=== PATIENT | female | born 1975 | race Two or more races ===

== ENCOUNTER 2019-06-07 17:15 | Inpatient (IN) | payer SELFPAY ==
[~2019-06-07] VITALS: Ht 160 cm; Wt 134.9 kg
[2019-06-07] MEDS ORDERED: cloNIDine HCL 0.1 MG TAB ONE (17:48)
[2019-06-07] MEDS ORDERED: cloNIDine HCL 0.1 MG TAB PO ONE (18:00)
[2019-06-07 19:04] LABS: Basophils # (auto) 0.1 uL; Basophils % (auto) 0.6 % (0.0-2.0); Eosinophils # (auto) 0.2 uL; Eosinophils % (auto) 1.5 % (0.0-7.0); Hematocrit 35.7 % (36.0-46.0); Hemoglobin 11.8 g/dL (12.2-16.2); Lymphocytes # (auto) 1.6 uL; Lymphocytes % (auto) 15.8 % (10.0-50.0); Mean Corpuscular Hemoglobin 25.2 pg (28.0-32.0); Mean Corpuscular Volume 76.3 fL (80.0-100.0); Monocytes # (auto) 0.7 uL; Monocytes % (auto) 6.9 % (0.0-12.0); Neutrophils # (auto) 7.7 uL; Neutrophils % (auto) 75.2 % (37.0-80.0); Platelet Count (auto) 315 10^3/uL (140-450); Red Blood Cells 4.68 10^6/uL (4.0-5.20); Red Cell Distribution Width 16.9 % (11.8-14.3); White Blood Cell 10.3 10^3/uL (4.4-10.8)
[2019-06-07 19:29] LABS: Albumin 3.3 g/dL (3.4-5.0); Calcium 8.7 mg/dL (8.5-10.1); Potassium 3.3 mmol/L (3.5-5.1)
[2019-06-07 19:34] LABS: BUN/Creatinine Ratio 23.1; Bilirubin, Total 0.3 mg/dL (0.2-1.0); Total Protein 7.2 g/dL (6.4-8.2)
[2019-06-07] MEDS ORDERED: HYDROcodone-ACET 10/325MG TAB PO ONE (23:45)
[2019-06-08] MEDS ORDERED: TEMAZEPAM 15 MG CAP PO PRN (05:15)
[2019-06-08] MEDS ORDERED: ONDANSETRON HCL 4 MG/2 ML VIAL IV PRN (05:15)
[2019-06-08] MEDS ORDERED: POTASSIUM CHL 20 Meq TABLET PO ONE (05:15)
[2019-06-08 06:04] LABS: Cholesterol 188 mg/dL (< 200); HDL Cholesterol 50 mg/dL (40-59); LDL Cholesterol 111 mg/dL (< 100); Triglycerides 165 mg/dL (< 150)
[2019-06-08] MEDS ORDERED: HYDROcodone-ACET 5/325MG TAB PO ONE (06:30)
[2019-06-08 06:53] LABS: Uric Acid 4.9 mg/dL (2.6-6.0)
[2019-06-08 07:05] LABS: CRP High Sensitivity 1.16 mg/dL (< 0.3)
--- NOTE | 2019-06-08 07:30 | NUR ---
Opening Shift Note Received report on the patient. Awake and lying in bed. Patient shows no signs of distress at this time. Discussed plan of care with the patient. Bed in lowest position, side rails up x2, and the call light is within reach. Will continue to monitor.
[2019-06-08] MEDS: cloNIDine HCL 0.1 MG TAB PO PRN (07:34)
[2019-06-08] MEDS ORDERED: hydrALAZINE HCL 20 MG/ML VL IV ONE (07:45)
[2019-06-08 09:00] VITALS: BP 179/89
[2019-06-08 09:45] LABS: BUN/Creatinine Ratio 22.7; Calcium 8.3 mg/dL (8.5-10.1); Potassium 3.4 mmol/L (3.5-5.1)
[2019-06-08] MEDS: FAMOTIDINE 20 MG TAB PO SCH ×2 (10:00→21:36)
[2019-06-08] MEDS: amLODIPine BESYLATE 5 MG TAB PO SCH (10:00)
[2019-06-08] MEDS: METOPROLOL TARTRATE 25 MG TAB PO SCH ×2 (10:00→21:39)
[2019-06-08] MEDS: HCTZ 25 MG TAB PO SCH (10:00)
[2019-06-08] MEDS: ASPirin 81 mg TAB PO SCH (11:07)
[2019-06-08 13:21] VITALS: BP 122/75
[2019-06-08] MEDS ORDERED: POTASSIUM EFFERVESENT TAB 25 MEQ PO ONE (16:30)
[2019-06-08 17:00] VITALS: BP 119/74
[2019-06-08] MEDS: HYDROcodone-ACET 5/325MG TAB PO PRN (18:27)
--- NOTE | 2019-06-08 19:30 | NUR ---
received pt from day rn poc reviewed
--- NOTE | 2019-06-08 20:00 | NUR ---
pt observed resting with hob up resp even and unlabored, denies pain call light within reach all questions and concerns addressed
[2019-06-08 22:00] VITALS: BP 129/69
--- NOTE | 2019-06-09 04:37 | NUR ---
c/o left leg pain 11/14 medicated as ordered
[2019-06-09] MEDS: HYDROcodone-ACET 5/325MG TAB PO PRN (04:46)
[2019-06-09 05:00] VITALS: BP 131/79
[2019-06-09 06:28] LABS: Basophils # (auto) 0.1 uL; Basophils % (auto) 0.5 % (0.0-2.0); Eosinophils # (auto) 0.2 uL; Lymphocytes % (auto) 9.2 % (10.0-50.0); Mean Corpuscular Hemoglobin 25.2 pg (28.0-32.0); Red Cell Distribution Width 16.8 % (11.8-14.3)
[2019-06-09 06:30] LABS: Eosinophils % (auto) 1.8 % (0.0-7.0); Hemoglobin 11.5 g/dL (12.2-16.2); Mean Corpuscular Hgb Conc. 32.8 g/dL (32.0-36.0); Monocytes # (auto) 0.9 uL; Monocytes % (auto) 8.6 % (0.0-12.0); Neutrophils # (auto) 8.5 uL; Neutrophils % (auto) 79.9 % (37.0-80.0); Platelet Count (auto) 298 10^3/uL (140-450); Red Blood Cells 4.55 10^6/uL (4.0-5.20); White Blood Cell 10.6 10^3/uL (4.4-10.8)
--- NOTE | 2019-06-09 06:44 | NUR ---
report given to am nurse poc reviewed
[2019-06-09 06:47] LABS: BUN/Creatinine Ratio 27.3; Calcium 8.5 mg/dL (8.5-10.1); Potassium 3.6 mmol/L (3.5-5.1)
--- NOTE | 2019-06-09 07:30 | NUR ---
Opening Shift Note Received report on the patient. Sleeping lying in bed. Patient shows no signs of distress at this time. Discussed plan of care with the patient. Bed in lowest position, side rails up x2, and the call light is within reach. Will continue to monitor.
[2019-06-09 08:28] VITALS: BP 131/79
[2019-06-09 09:00] VITALS: BP 153/84
[2019-06-09] MEDS: METOPROLOL TARTRATE 25 MG TAB PO SCH ×2 (10:00→21:43)
[2019-06-09] MEDS: HCTZ 25 MG TAB PO SCH (10:00)
[2019-06-09] MEDS: ASPirin 81 mg TAB PO SCH (10:00)
[2019-06-09] MEDS: amLODIPine BESYLATE 5 MG TAB PO SCH (10:00)
[2019-06-09] MEDS: FAMOTIDINE 20 MG TAB PO SCH ×2 (10:00→21:44)
[2019-06-09 13:00] VITALS: BP 158/91
[2019-06-09 16:53] VITALS: BP 142/71
--- NOTE | 2019-06-09 19:26 | NUR ---
Opening Shift Note Assumed care of patient, awake and alert x 4. No S/S of distress/SOB. Bed is in lowest position and locked. Call light within reach. Board updated. Instructed on POC and to call for assist PRN, will continue to monitor for changes Q1hr and PRN.
[2019-06-09] MEDS: cloNIDine HCL 0.1 MG TAB PO PRN (21:44)
[2019-06-09 22:20] VITALS: BP 166/76
[2019-06-10] MEDS: HYDROcodone-ACET 5/325MG TAB PO PRN (05:18)
[2019-06-10] MEDS: cloNIDine HCL 0.1 MG TAB PO PRN (05:19)
[2019-06-10 05:52] VITALS: BP 161/81
[2019-06-10 07:01] LABS: Basophils # (auto) 0 uL; Eosinophils # (auto) 0.2 uL; Hemoglobin 11.6 g/dL (12.2-16.2); Mean Corpuscular Hemoglobin 25.2 pg (28.0-32.0); Monocytes # (auto) 1.1 uL; White Blood Cell 11.2 10^3/uL (4.4-10.8)
[2019-06-10 07:03] LABS: Basophils % (auto) 0.3 % (0.0-2.0); Eosinophils % (auto) 1.5 % (0.0-7.0); Hematocrit 35.5 % (36.0-46.0); Lymphocytes # (auto) 1.1 uL; Lymphocytes % (auto) 10.2 % (10.0-50.0); Mean Corpuscular Hgb Conc. 32.7 g/dL (32.0-36.0); Mean Corpuscular Volume 76.9 fL (80.0-100.0); Monocytes % (auto) 9.5 % (0.0-12.0); Neutrophils # (auto) 8.8 uL; Neutrophils % (auto) 78.5 % (37.0-80.0); Platelet Count (auto) 303 10^3/uL (140-450); Red Blood Cells 4.61 10^6/uL (4.0-5.20); Red Cell Distribution Width 16.9 % (11.8-14.3)
[2019-06-10 07:22] LABS: Anion Gap 4 (5-15); Blood Urea Nitrogen 14 mg/dL (7-18); Calcium 8.7 mg/dL (8.5-10.1); Carbon Dioxide 30 mmol/L (21-32); Chloride 105 mmol/L (98-107); GFR African American 151 mL/min; GFR Non-African American 124 mL/min; Glucose 103 mg/dL (74-106); Potassium 3.6 mmol/L (3.5-5.1); Sodium 139 mmol/L (136-145)
--- NOTE | 2019-06-10 07:30 | NUR ---
Opening Shift Note Assumed care of patient, awake and alert. No S/S of distress/SOB or pain. Instructed on POC and to call for assist PRN, will continue to monitor for changes Q1hr and PRN.
[2019-06-10 09:00] VITALS: BP 135/70
[2019-06-10] MEDS: ASPirin 81 mg TAB PO SCH (10:06)
[2019-06-10] MEDS: FAMOTIDINE 20 MG TAB PO SCH (10:06)
[2019-06-10] MEDS: HCTZ 25 MG TAB PO SCH (10:06)
[2019-06-10] MEDS: amLODIPine BESYLATE 5 MG TAB PO SCH (10:06)
[2019-06-10] MEDS: METOPROLOL TARTRATE 25 MG TAB PO SCH (10:07)
--- NOTE | 2019-06-10 10:20 | NUR ---
DOCTOR BUCIO AT BEDSIDE. ORDERS RECEIVED, READ BACK, WILL PLACE AND CARRY OUT.
--- NOTE | 2019-06-10 10:27 | NUR ---
DOCTOR BUCIO AT BEDSIDE. Addendum: 06/10/19 at 1028 by Margarita Nelson RN DOUBLE ENTRY, PLEASE DISREGARD.
[2019-06-10 12:49] VITALS: BP 128/86
[2019-06-10] MEDS ORDERED: ATOR20TA50 PO (13:13)
[2019-06-10] MEDS ORDERED: FAM20T PO (13:13)
[2019-06-10] MEDS ORDERED: MET25T PO (13:13)
[2019-06-10] MEDS ORDERED: ASPI81CH43 PO (13:13)
[2019-06-10] MEDS ORDERED: LOSA50TA26 PO (13:13)
== END 2019-06-10 15:19 | disposition home or self-care (01) | DRG 281 ==
LOC: ER 17:15 → OVERFLOW 17:16 → WEST WING 06-08 07:49
PROVIDERS: ADMIT Nurse Practitioner; ATTEND Internal Medicine
DX: I16.0 Hypertensive urgency (principal); I21.A1 Myocardial infarction type 2; Z68.43 Body mass index [BMI] 50.0-59.9, adult; E66.01 Morbid (severe) obesity due to excess calories; E78.5 Hyperlipidemia, unspecified; E87.6 Hypokalemia; I10 Essential (primary) hypertension; Z80.49 Family history of malignant neoplasm of other genital organs; Z82.49 Family history of ischemic heart disease and other diseases of the circulatory system; Z91.14 Patient's other noncompliance with medication regimen; Z91.19 Patient's noncompliance with other medical treatment and regimen; Z79.82 Long term (current) use of aspirin; Z79.899 Other long term (current) drug therapy
CPT/HCPCS: 36415; 71045; 73700; 80048; 80053; 80061; 82533; 83880; 84443; 84484; 84550; 85025; 86141; 93005; 93306; 93926; 93971; G0378